=== PATIENT | male | born 1960 | race Caucasian/White ===

== ENCOUNTER 2017-02-07 18:53 | Emergency (ER) | payer BC ==
[~2017-02-07] VITALS: Ht 188 cm; Wt 120.0 kg
[2017-02-07] MEDS ORDERED: SODIUM CHLORIDE 0.9% 1,000 ML IV ONE (18:56)
[2017-02-07 18:59] VITALS: BP 149/95
[2017-02-07] MEDS ORDERED: SODIUM CHLORIDE FLUSH 10ML SYR IVF ONE (19:00)
[2017-02-07] MEDS ORDERED: LORazepam 2 MG/ML, 1ML IVPush ONE ×3 (19:00→19:30)
[2017-02-07] MEDS ORDERED: LORazepam 2 MG/ML, 1ML ONE ×2 (19:06→19:51)
[2017-02-07 19:19] LABS: HEMATOCRIT 46.2 % (39.2-51.8); HEMOGLOBIN 15.8 g/dL (13.7-18.0); WHITE BLOOD COUNT 5.2 x10^3/uL (3.4-10)
[2017-02-07 19:32] LABS: ASPARTATE AMINO TRANSFERASE 50 U/L (15-37); BLOOD UREA NITROGEN 18 mg/dL (7-18)
[2017-02-07] MEDS ORDERED: OMNIPAQUE 350 MG/ML, 100ML BOTTLE ONE (20:24)
== END 2017-02-07 21:15 | disposition home or self-care (01) ==
LOC: ED 21:09
DX: G92 Toxic encephalopathy (principal); I10 Essential (primary) hypertension; F10.129 Alcohol abuse with intoxication, unspecified; F19.10 Other psychoactive substance abuse, uncomplicated
CPT/HCPCS: 36415; 70450; 70496; 70498; 80053; 80307; 82962; 85025; 85610; 93005; 99291; Q9967; G0479

== ENCOUNTER 2017-07-13 11:50 | Emergency (ER) | payer BC, OTHER ==
[~2017-07-13] VITALS: Ht 188 cm; Wt 129.3 kg
[2017-07-13 11:52] VITALS: BP 155/98
[2017-07-13 12:33] LABS: RAPID INFLUENZA A Negative (Negative); RAPID INFLUENZA B Negative (Negative)
== END 2017-07-13 15:03 | disposition left against medical advice (07) ==
LOC: ED 14:54
DX: R09.89 Other specified symptoms and signs involving the circulatory and respiratory systems (principal); R31.9 Hematuria, unspecified; Z87.442 Personal history of urinary calculi
CPT/HCPCS: 87400; 99284